=== PATIENT | female | born 1960 | race Caucasian/White ===

== ENCOUNTER 2019-11-17 07:06 | Outpatient (CLI) | payer BC, OTHER ==
[2019-11-18 12:38] LABS: SARS-CoV-2 MS2 Positive; SARS-CoV-2 N Gene Negative; SARS-CoV-2 S Gene Negative; SARS-CoV-2 by NAA Not Detected (NotDetected); SARS-CoV-2 orf1ab Negative
== END 2019-11-17 07:07 | disposition home or self-care (01) ==
LOC: LABBT 07:06
PROVIDERS: ATTEND Neurological Surgery
DX: Z01.812 Encounter for preprocedural laboratory examination (principal); Z11.59 Encounter for screening for other viral diseases; G95.89 Other specified diseases of spinal cord
CPT/HCPCS: 87635; U0003

== ENCOUNTER 2019-11-22 05:34 | Day surgery (SDC) | payer BC ==
[2019-11-15 14:51] VITALS: BMI 31.4
--- NOTE | 2019-11-21 23:08 | HP ---
HISTORY OF PRESENT ILLNESS: Ms. Da Silva is referred to us for evaluation of neuropathic pains in the bilateral extremity and hands as well as functional loss in her hands from a fall many months ago off the stool and also she suffered unfortunately from central cord syndrome and has been gradually recovering. She continues to be quite myelopathic. She is managed with some therapy and time and is also taking medications. MRI from [facility] reveals signal change at C3-4 and the cord is bulge rather, severe spinal stenosis from C3 to C6. She hopes to discuss possible treatment for exam is deferred for telehealth visit. PAST MEDICAL HISTORY: Hypercholesterolemia, chronic pain syndrome, depression, diabetes, osteoarthritis, cataracts, and hypertension. PAST SURGICAL HISTORY: Oophorectomy, bilateral; left eye, unspecified; and hammertoe, right foot. ALLERGIES: LIPITOR. CURRENT MEDICATIONS: 1. Sertraline. 2. Rosuvastatin. 3. Metformin. 4. Glipizide. 5. Atenolol. 6. Tramadol. 7. Methocarbamol. 8. Gabapentin. 9. Amitriptyline. 10. Ibuprofen. 11. Calcium. ASSESSMENT: Central cord syndrome and myelopathy. PLAN: Dr. Tafoya met with the patient, reviewed imaging, advocated for C3-C6 ACDF. He explained the patient the risks, benefits, and alternatives to the procedure. The patient expressed understanding and elected to move forward with surgery as discussed. I do believe that the patient is mentally competent and capable of making medical decisions for herself. We will move forward with surgery as planned. Job ID: [id number]
[2019-11-22] MEDS ORDERED: Fentanyl 100 MCG/2 ML VIAL ONE ×5 (06:56→09:59)
[2019-11-22] MEDS ORDERED: HYDROmorphone 2 MG/ML VIAL SLOW IVP PRN (07:38)
[2019-11-22] MEDS ORDERED: Ondansetron HCl/PF 4 MG/2 ML Vial IVP PRN (07:38)
[2019-11-22] MEDS ORDERED: Promethazine HCl 25 MG/ML VIAL SLOW IVP PRN (07:38)
--- NOTE | 2019-11-22 08:53 | OP ---
DATE OF PROCEDURE: 11/22/2019 RECORDS MANAGEMENT SPECIALIST: Bruce Sunshine PA-C INDICATION: Pain and prevent neurologic decline. DIAGNOSIS: Cervical spondylotic myelopathy. PROCEDURE PERFORMED: Anterior cervical diskectomy and fusion, C3-C6. ANESTHESIA: General. DESCRIPTION OF PROCEDURE: The patient was brought into the operating room and placed under general anesthesia. She was placed on the table in the supine position. A transverse incision was planned over the lateral aspect of the neck. Great care was maintained throughout the case to maintain neutrality of her neck. After prepping and draping and after an appropriate preoperative pause, the incision was created. The underlying platysma muscles were identified and incised. A blunt tissue plane anterior to the sternocleidomastoid muscle was used to gain access to the prevertebral space. Self-retaining retractors were placed in the wound for optimal exposure. After confirming the appropriate level with C-arm fluoroscopy , an annulotomy was performed in the C5-C6 disk space. All disk material as well as anterior and posterior osteophytes were removed. After completing the diskectomy and decompression, a 7-mm lordotic PEEK cage packed with allograft and autograft material was placed within the interbody space. We then redirected our attention to the level above at C4-C5, where again an annulotomy was performed. All disk material as well as anterior and posterior osteophytes were removed. After completing the decompression, a 6-mm lordotic PEEK cage was placed with allograft and autograft. We then redirected our attention in C3-C4, where an annulotomy was performed and disk material as well as anterior and posterior osteophytes were removed until the decompression was complete. After completing the decompression, a 6-mm lordotic PEEK cage packed with allograft and autograft material was placed in the interbody space. An anterior cervical plate was then fashioned to the front of spine and secured with a total of 8 screws. Midline and lateral structures were then inspected and found to be free from significant trauma. The wound was irrigated. Hemostasis was maintained throughout. The wound was then closed in anatomic layers, and a pressure dressing was applied. There were no known procedural complications. Job ID: [id number] [id number]
[2019-11-22] MEDS ORDERED: Lidocaine 1% PF 5 ML VIAL ONE (09:30)
[2019-11-22] MEDS ORDERED: Ketorolac Tromethamine 30 MG/ML VIAL ONE (09:30)
[2019-11-22] MEDS ORDERED: PROPOFOL 200 MG/20 ML VIAL ONE (09:30)
[2019-11-22] MEDS ORDERED: Rocuronium Bromide 10 MG/ML (10ML VIAL) ONE (09:30)
[2019-11-22] MEDS ORDERED: Dexamethasone 20 MG/5 ML VIAL ONE (09:30)
[2019-11-22] MEDS ORDERED: Ondansetron PF 4 MG/2 ML Vial ONE (09:30)
[2019-11-22] MEDS ORDERED: Glycopyrrolate 0.2 MG/ML 5 ML SYRINGE ONE (09:30)
[2019-11-22] MEDS ORDERED: Acetaminophen/Codeine 30-300mg Tablet ONE (10:08)
[2019-11-22] MEDS ORDERED: Acetaminophen/Codeine 30-300mg Tablet PO PRN ×2 (10:10)
[2019-11-22] MEDS ORDERED: diphenhydrAMINE 25 MG CAP PO PRN (10:10)
[2019-11-22] MEDS ORDERED: Bisacodyl 10 MG SUPP PR PRN (10:10)
[2019-11-22] MEDS ORDERED: Acetaminophen 650 MG Suppository PR PRN (10:10)
[2019-11-22] MEDS ORDERED: Acetaminophen 325 MG TAB PO PRN (10:10)
[2019-11-22] MEDS ORDERED: Sodium Chloride 0.9% 1,000 ML IV SCH (10:10)
[2019-11-22] MEDS ORDERED: diphenhydrAMINE 50 MG/ML VIAL IVP PRN (10:10)
[2019-11-22] MEDS ORDERED: Cyclobenzaprine 10 MG TAB PO PRN (10:10)
[2019-11-22] MEDS ORDERED: Morphine 2 MG/ML VIAL SLOW IVP PRN (10:10)
[2019-11-22] MEDS ORDERED: Morphine 4 MG/ML VIAL SLOW IVP PRN (10:10)
[2019-11-22] MEDS ORDERED: Ondansetron PF 4 MG/2 ML Vial IVP PRN (10:12)
[2019-11-22] MEDS ORDERED: CEFAZOLIN 2 GM in Premix Bag 1 BAG IVPB SCH (14:00)
== END 2019-11-22 13:00 | disposition home or self-care (01) ==
LOC: SDC 05:34
PROVIDERS: ATTEND Neurological Surgery
PROC: 0RT30ZZ Resection of Cervical Vertebral Disc, Open Approach (ICD-10-PCS; principal; 2019-11-22)
PROC: 0RG20A0 Fusion of 2 or more Cervical Vertebral Joints with Interbody Fusion Device, Anterior Approach, Anterior Column, Open Approach (ICD-10-PCS; principal; 2019-11-22)
DX: M47.12 Other spondylosis with myelopathy, cervical region (principal); S14.123A Central cord syndrome at C3 level of cervical spinal cord, initial encounter; M48.02 Spinal stenosis, cervical region; M48.062 Spinal stenosis, lumbar region with neurogenic claudication; E78.00 Pure hypercholesterolemia, unspecified; G89.4 Chronic pain syndrome; F32.9 Major depressive disorder, single episode, unspecified; E11.42 Type 2 diabetes mellitus with diabetic polyneuropathy; M19.90 Unspecified osteoarthritis, unspecified site; I10 Essential (primary) hypertension; G47.30 Sleep apnea, unspecified; F17.200 Nicotine dependence, unspecified, uncomplicated; Z79.84 Long term (current) use of oral hypoglycemic drugs; Z79.899 Other long term (current) drug therapy; Z88.8 Allergy status to other drugs, medicaments and biological substances; W07.XXXA Fall from chair, initial encounter
CPT/HCPCS: 76000; 93005; 93010; C1713; C1768; C1776; J0690; J1100; J1885; J2405; J2704; J3010